=== PATIENT | male | born 1975 | race Caucasian/White ===

== ENCOUNTER 2016-10-26 18:20 | Emergency (ER) | payer OTHER ==
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
--- NOTE | 2016-10-26 21:17 | ED ORDER SUMMARY ---
..... Patient: RODGER ROSADO OrderSheet [facility] VisitID: [id number] [address] [place] [address] 41y, M Registration Date/Time: 10/26/2016 ORDER SHEET Weight: 90.7 kg (stated) Allergies: No Known Drug Allergy GENERAL ORDERS: Foot 3V Right Urgent (18:52 10/26/2016 HBivens A.R.N.P.) (Ack 18:55 LNations ER Tech1) (19:12 EHassan R.N.) Hand 3 or 4V Right Urgent (18:52 10/26/2016 HBivens A.R.N.P.) (Ack 18:55 LNations ER Tech1) (19:12 EHassan R.N.) Splint (UE) (Right) (Ulnar Gutter) (20:42 10/26/2016 HBivens A.R.N.P.) (Ack 21:01 JQuivey R.N.) (21:31 EHassan R.N.) Sling - arm (20:42 10/26/2016 HBivens A.R.N.P.) (Ack 21:01 JQuivey R.N.) (21:31 EHassan R.N.) MEDICATION ORDERS: IV FLUIDS: ORDER SHEET NOTES: [Electronically signed by Jasmin Perry R.N. (21:31 10/26/2016)] [Electronically signed by Amena Little.R.N.P. (21:37 10/26/2016)] [Electronically locked/signed by Jasmin Perry R.N. (21:31 10/26/2016)]
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
--- NOTE | 2016-10-26 21:17 | ED ORDER SUMMARY ---
..... Patient: RODGER ROSADO OrderSheet [facility] VisitID: [id number] [address] [place] [address] 41y, M Registration Date/Time: 10/26/2016 ORDER SHEET Weight: 90.7 kg (stated) Allergies: No Known Drug Allergy GENERAL ORDERS: Foot 3V Right Urgent (18:52 10/26/2016 HBivens A.R.N.P.) (Ack 18:55 LNations ER Tech1) (19:12 EHassan R.N.) Hand 3 or 4V Right Urgent (18:52 10/26/2016 HBivens A.R.N.P.) (Ack 18:55 LNations ER Tech1) (19:12 EHassan R.N.) Splint (UE) (Right) (Ulnar Gutter) (20:42 10/26/2016 HBivens A.R.N.P.) (Ack 21:01 JQuivey R.N.) (21:31 EHassan R.N.) Sling - arm (20:42 10/26/2016 HBivens A.R.N.P.) (Ack 21:01 JQuivey R.N.) (21:31 EHassan R.N.) MEDICATION ORDERS: IV FLUIDS: ORDER SHEET NOTES: [Electronically signed by Jasmin Perry R.N. (21:31 10/26/2016)] [Electronically signed by Amena Little.R.N.P. (21:37 10/26/2016)] [Electronically locked/signed by Jsamin Perry R.N. (21:31 10/26/2016)]
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
--- NOTE | 2016-10-26 21:37 | ED MED RECONCILIATION SUMMARY ---
Patient: RODGER ROSADO Medication Reconciliation Report [facility] VisitID: [id number] [address] [place] [address] 41y, M Registration Date/Time: 10/26/2016 Weight: 90.7 kg Height/Length: 67 in. BMI: 31.3 ALLERGIES: No Known Drug Allergy The patient's Home Medications are listed below: THE FOLLOWING MEDICATIONS NEED TO BE RECONCILED: CarBAMazepine Oral Zoloft Oral The source(s) of the original Home Medication information: patient The following Medications were given to the patient in the Emergency Department: None. The following Medications were prescribed to the patient: [place] 5 mg / 325 mg tablets: take 1 to 2 orally every 6 hours as needed for pain. Dispense fifteen (15). No refills. Substitution is permissible. -- Amena Little, [place].R.N.P. Motrin 800 mg tablets: take 1 tablet orally every 8 hours as needed for pain. Dispense thirty (30). No refills. Substitution is permissible. -- Amena Little A.R.N.P.
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
--- NOTE | 2016-10-26 21:37 | ED MAR SUMMARY ---
..... Medication Administration Record [facility] [address] [place] [address] Patient: RODGER ROSADO Visit ID: [id number] 41y, M Weight: 90.7 kg Height/Length: 67 in BMI: 31.3 ALLERGIES: No Known Drug Allergy
--- NOTE | 2016-10-26 21:37 | ED MAR SUMMARY ---
..... Medication Administration Record [facility] [address] [place] [address] Patient: RODGER ROSADO Visit ID: [id number] 41y, M Weight: 90.7 kg Height/Length: 67 in BMI: 31.3 ALLERGIES: No Known Drug Allergy
--- NOTE | 2016-10-26 21:37 | ED MED RECONCILIATION SUMMARY ---
Patient: RODGER ROSADO Medication Reconciliation Report [facility] VisitID: [id number] [address] [place] [address] 41y, M Registration Date/Time: 10/26/2016 Weight: 90.7 kg Height/Length: 67 in. BMI: 31.3 ALLERGIES: No Known Drug Allergy The patient's Home Medications are listed below: THE FOLLOWING MEDICATIONS NEED TO BE RECONCILED: CarBAMazepine Oral Zoloft Oral The source(s) of the original Home Medication information: patient The following Medications were given to the patient in the Emergency Department: None. The following Medications were prescribed to the patient: Udell 5 mg / 325 mg tablets: take 1 to 2 orally every 6 hours as needed for pain. Dispense fifteen (15). No refills. Substitution is permissible. -- Amena Little, [place].R.N.P. Motrin 800 mg tablets: take 1 tablet orally every 8 hours as needed for pain. Dispense thirty (30). No refills. Substitution is permissible. -- Amena Little A.R.N.P.
== END 2016-10-26 21:30 | disposition home or self-care (01) ==
LOC: ED SRH 18:20
DX: S62.366A Nondisplaced fracture of neck of fifth metacarpal bone, right hand, initial encounter for closed fracture (principal); S00.211A Abrasion of right eyelid and periocular area, initial encounter; S90.31XA Contusion of right foot, initial encounter; Y04.0XXA Assault by unarmed brawl or fight, initial encounter; Y93.89 Activity, other specified; Y92.9 Unspecified place or not applicable; Y99.9 Unspecified external cause status; F10.120 Alcohol abuse with intoxication, uncomplicated; Z79.899 Other long term (current) drug therapy; F17.200 Nicotine dependence, unspecified, uncomplicated